=== PATIENT | female | born 1930 | race African-American/Black ===

== ENCOUNTER 2016-07-25 05:46 | Inpatient (IN) ==
[2016-07-25] MEDS ORDERED: NS 500 ML IV PRN (05:54)
--- NOTE | 2016-07-25 06:05 | PROVIDER DOCUMENTATION ---
HPI-General Adult - General Chief Complaint: Stroke-Like Symptoms Stated Complaint: STROKE LIKE SYMPTOMS Time Seen by Provider: 07/25/16 05:47 Source: EMS, longterm records Allergies/Adverse Reactions: Patient Allergies Allergy/AdvReac Type Severity Reaction Status Date / Time No Known Allergies Allergy Verified 07/25/16 06:10 Home Medications: Home Medication List Medication Instructions Recorded Confirmed Last Taken Type Levothyroxine [Synthroid] 75 microgm PO DAILY 11/19/12 07/25/16 02/03/16 14:30 History 50 mcg Pantoprazole [Protonix] 40 mg PO DAILY@0700 11/19/12 07/25/16 02/03/16 07:00 History 40mg Memantine HCl/Donepezil HCl 1 cap PO DAILY 02/03/16 02/03/16 02/02/16 15:00 History [Namzaric 28 mg-10 mg Capsule] 1 cap Sucralfate [Carafate] 1 gm PO BID 02/03/16 02/03/16 02/03/16 09:00 History 1gm Megestrol Acetate [Megace] 40 mg PO BID #0 tablet 02/08/16 Unknown Rx Megestrol Acetate [Megace] 40 mg PO BID #0 tablet 02/08/16 07/25/16 Unknown Rx Benzonatate 200 mg PO DIRECTED 07/25/16 07/25/16 Unknown History Donepezil [Aricept] 10 mg PO DAILY 07/25/16 07/25/16 Unknown History Furosemide [Lasix] 30 mg PO DAILY 07/25/16 07/25/16 Unknown History Loratadine 10 mg PO DAILY 07/25/16 07/25/16 Unknown History Memantine HCl [Namenda] 10 mg PO BID 07/25/16 07/25/16 Unknown History Multivits,Ca,Minerals/Iron/FA 1 each PO DAILY 07/25/16 07/25/16 Unknown History [Thera-M Tablet] Potassium Citrate E.r. [Urocit-K] 10 meq PO DAILY 07/25/16 07/25/16 Unknown History - History of Present Illness -Gen Adult Nature of Presenting Problems: this patient is brought to us from [facility] via ambulance for stroke like symptoms. She apparently was reported as normal on the 3 am rounds at the [place] but then was checked again at about 5 am and was noted to not be able to verbally respond although she seemed awake. EMS was called and she was brought to the ED. It was difficult to assess her extremity strength at the [place] but she was thought to have a right sided drift of the right upper extremity. On exam by me almost immediately upon arrival, she was able to answer verbally to me when I called her name. Location of Pain/Injury: reports: none Onset/Duration: reports: 1-3 hours ago Timing: reports: improving Context/Activities at Onset: reports: sleep Modifying Factors: improves with: nothing Associated Symptoms: reports: other (this patient although she would respond to her named being called, she could not verbalize what her symptoms were.) Similar Symptoms Previously?: Yes Recently seen or treated by another doctor?: Yes Review of Systems - Adult - REVIEW OF SYSTEMS - ADULT ROS:: unobtainable per condition Constitutional: reports: no symptoms reported Eyes: reports: no symptoms reported Ears, Nose, Mouth & Throat: reports: no symptoms reported Cardiovascular: reports: no symptoms reported Respiratory: reports: no symptoms reported Gastrointestinal: reports: no symptoms reported Genitourinary: reports: no symptoms reported Musculoskeletal: reports: no symptoms reported Integumentary: reports: no symptoms reported Neurological: reports: no symptoms reported Psychiatric: reports: no symptoms reported Endocrine: reports: no symptoms reported Hematologic/Lymphatic: reports: no symptoms reported Allergic/Immunologic: reports: no symptoms reported All Other Systems: Reviewed and Negative Past History - Adult - PAST MEDICAL HISTORY-ADULT Review of Records: reports: Nursing Assessment Review - SOCIAL HISTORY Smoking: denies Physical Exam-General - PHYSICAL EXAM-ADULT Initial Vital Signs Reviewed: Yes - CONSTITUTIONAL General Appearance: no apparent distress, slow to respond - EYES Eyes: PERRL/EOMI - HEAD, EARS, NOSE, MOUTH & THROAT HENMT: normocephalic/atraumatic - NECK Neck: supple - RESPIRATORY Respiratory: lungs clear - CARDIOVASCULAR Cardiovascular: regular rate, rhythm - GASTROINTESTINAL (ABDOMEN) Abdominal Exam: non tender, soft - MUSCULOSKELETAL Extremity: pedal edema (2+) - SKIN Integumentary: normal color, warm/dry - NEUROLOGIC Neurologic: other (I could not get any difference in the exam of her extremities. There seemed to be equal strength in weakness in all extremities.) . negative: facial droop, focal weakness, motor weakness - PSYCHIATRIC Psych/Mental Status: negative: oriented x 3 (oriented to person) Progress - PLAN OF CARE/RESULTS Progress/Plan/Lab Results: Vital Signs - 8 hr 07/25/16 05:54 Temperature 98.2 F Pulse Rate 115 H Respiratory Rate 24 Blood Pressure 110/77 O2 Sat by Pulse Oximetry 98 Orders Category Date Time Status Cardiac Monitoring DIRECTED Care 07/25/16 05:54 Ordered Finger Stick Blood Sugar (ED) DIRECTED Care 07/25/16 05:54 Ordered Misc. NRSG Communication Order DIRECTED Care 07/25/16 05:54 Ordered Saline Loc NOW Care 07/25/16 05:54 Ordered CHEST-PORTABLE [RAD] Stat Exams 07/25/16 05:54 Ordered HEAD W/O CONTRAST [CT] Stat Exams 07/25/16 05:44 Ordered HEAD W/O CONTRAST [CT] Stat Exams 07/25/16 05:54 Ordered CBC WITH ELECTRONIC DIFF [HEME] Stat Lab 07/25/16 05:54 Ordered COMPREHENSIVE METABOLIC PANEL [CHEM] Stat Lab 07/25/16 05:[address] Or[address]IME WITH INR PL [COAG] Stat Lab 07/25/16 05:[address] [COAG] Stat Lab 07/25/16 05:54 Ordered TROPONIN T Stat Lab 07/25/16 05:54 Ordered URINALYSIS W/POSS RFLX CULT-1 [URINALYSIS] Stat Lab 07/25/16 05:54 Uncollected URINE DRUG SCREEN PL Stat Lab 07/25/16 05:54 Uncollected 0.9% Sodium Chloride Inj [Ns] 500 ml Med 07/25/16 05:54 Ordered IV 999 mls/hr EKG [EKG] Stat Ther 07/25/16 05:54 Ordered Result Diagrams: 07/25/16 06:45 07/25/16 06:45 - EKG 1 Time of EKG reading by physician:: 06:15 EKG Read and Signed by:: Meng Quintanilla EKG Interpretation (*Must complete 3 of following elements*): Abnormal Rate: 117 Rhythm: sinus [place]: left QRS: LBB - CONSULTS/PCP/HOSPITALIST Notification #1 *Consult/PCP/Hospitalist*: Sy Mathias Disposition: Admit Departure - Departure Time of Disposition Decision: 07:57 DIAGNOSIS: TIA (transient ischemic attack), Pneumonia Disposition: ADMITTED INPATIENT 09 Certified Medical Emergency: Emergent Condition: Fair Referrals and Follow-Ups: Sy Lemon MD [Primary Care Provider] - - Critical Care Note This patient required my direct & personal management of CC.: Yes
--- NOTE | 2016-07-25 06:34 | Diag Imaging Result Document ---
PROCEDURE NAME: HEAD W/O CONTRAST - 07/25/2016 CT BRAIN WITHOUT CONTRAST: TECHNIQUE: Dose-reduction protocol. COMPARISON: Compared to 05/30/2016. FINDINGS: No parenchymal hemorrhage. No epidural or subdural hematoma. No subarachnoid hemorrhage. There is diffuse atrophy. No mass identified on this noncontrasted exam. No hydrocephalus. Minimal microvascular ischemic changes. No sinus opacification. No air fluid levels. IMPRESSION: 1. No hemorrhage. 2. Atrophy with minimal microvascular ischemic changes similar to the prior exam. A preliminary report was given at 6:11 a.m.
[2016-07-25 06:54] LABS: MANUAL DIFF NEEDED? NO
[2016-07-25 06:56] LABS: UR AMPHETAMINES QUAL NONE DETECTED (NONE DETECT); UR BARBITUATES QUAL NONE DETECTED (NONE DETECT); UR BENZODIAZEPIN QUAL NONE DETECTED (NONE DETECT); UR CANNABINOIDS QUAL NONE DETECTED (NONE DETECT); UR COCAINE QUAL NONE DETECTED (NONE DETECT); UR MDMA QUAL NONE DETECTED (NONE DETECT); UR METHADONE QUAL NONE DETECTED (NONE DETECT); UR METHAMPHETAMINE QUAL NONE DETECTED (NONE DETECT); UR OPIATES QUAL NONE DETECTED (NONE DETECT); UR OXYCODONE QUAL NONE DETECTED (NONE DETECT); UR PCP QUAL NONE DETECTED (NONE DETECT); UR TCA QUAL NONE DETECTED (NONE DETECT)
[2016-07-25 06:57] LABS: BASO% 0.6 % (0.0-0.8); EOS# 0.32 X1000 (0.0-0.7); HEMATOCRIT 28.4 % (37.0-47.0); HEMOGLOBIN 8.6 g/dL (12.0-16.0); IMM GRAN# 0.13 X1000 (0.0-0.04); IMM GRAN% 1.6 % (0.0-0.5); LYMPH# 1.85 X1000 (1.2-3.4); LYMPH% 22.9 % (20.5-51.1); MCH 26.8 PG (27-31); MCHC 30.3 g/dL (33-37); MCV 88.5 FL (81-99); MONO# 0.65 X1000 (0.11-0.59); MPV 9.2 FL (7.4-10.4); NEUT% 62.9 % (42.2-75.2); PLT 270 X1000 (130-400); RBC 3.21 XMIL (4.2-5.4)
--- NOTE | 2016-07-25 07:08 | Diag Imaging Result Document ---
PROCEDURE NAME: CHEST-PORTABLE - 07/25/2016 PORTABLE CHEST: COMPARISON: Compared to 11/14/2013. FINDINGS: There are bilateral infiltrates. These are most pronounced in the mid left lung. The heart is mildly enlarged. No pleural effusions identified. IMPRESSION: Bilateral infiltrates. Followup film is recommended.
[2016-07-25 07:15] LABS: AGAP 15; ALBUMIN 3.3 g/dL (3.5-5.0); ALKALINE PHOSPHATASE 43 U/L (32-104); BUN 42 mg/dL (8-22); CALCIUM 8.1 mg/dL (8.8-10.2); CHLORIDE 108 mmol/L (98-107); COSMO 293; GOT 11 U/L (10-30); GPT 5 U/L (10-36); POTASSIUM 4.3 mmol/L (3.5-5.1); SODIUM 142 mmol/L (136-145); TCO2 19 mmol/L (25-35); TOTAL BILIRUBIN < 0.15 mg/dL (0.20-1.00); TOTAL PROTEIN 6.2 g/dL (6.3-8.3)
[2016-07-25 07:25] LABS: URINE SOURCE CATH; URINE WBC <10 /HPF (<10)
[2016-07-25 07:26] LABS: BILIRUBIN URINE NEGATIVE (NEGATIVE); BLOOD URINE 4+ (NEGATIVE); CLARITY CLEAR (CLEAR); COLOR YELLOW; GLUCOSE URINE NEGATIVE (NEGATIVE); LEUKOCYTES URINE TRACE (NEGATIVE); NITRITE URINE NEGATIVE (NEGATIVE); PROTEIN URINE TRACE mg/dL (NEGATIVE); SP GRAVITY URINE 1.015; URINE CAST NONE SEEN /LPF; URINE CRYSTAL NONE SEEN /HPF; URINE CULTURE PL NEEDED? YES; URINE EPITHELIAL CELLS <10 /HPF (<10); URINE RBC 20-40 /HPF (<10); UROBILINOGEN URINE NORMAL
[2016-07-25 07:38] LABS: INR 1.25 (0.86-1.15)
[2016-07-25 07:39] LABS: PTT PL 33.9 Seconds (22.6-43.9)
[2016-07-25] MEDS ORDERED: ROCEPHIN 1 GM/NS 1 GM/50 ML IVPB IV ONE (08:03)
[2016-07-25] MEDS ORDERED: NS 1,000 ML IV ONE (08:04)
[2016-07-25] MEDS ORDERED: TYLENOL PO PRN (08:04)
[2016-07-25] MEDS ORDERED: ZOFRAN IV PRN (08:04)
--- NOTE | 2016-07-25 11:35 | EKG Report ---
Test Performed on : 07/25/2016 06:05:10 AM Test Reason : stroke symptoms Blood Pressure : / mmHG Vent. Rate : 117 BPM Atrial Rate : 117 BPM P-R Int : 000 ms QRS Dur : 146 ms QT Int : 346 ms P-R-T Axes : 000 -49 139 degrees QTc Int : 482 ms Wide QRS rhythm. with occasional premature ventricular complexes. Left axis deviation Left bundle branch block Abnormal ECG When compared with ECG of 05-FEB-2016 16:03, Wide QRS rhythm. has replaced Sinus rhythm. Vent. rate has increased BY 42 BPM Unconfirmed Result
[2016-07-25] MEDS ORDERED: TESSALON PO PRN (11:45)
[2016-07-25] MEDS: NITROGLYCERIN TOP SCH ×2 (12:15→17:37)
--- NOTE | 2016-07-25 16:10 | HISTORY AND PHYSICAL ---
CHIEF COMPLAINT: Family noted unresponsiveness and brought her to the emergency room by ambulance. PRESENT ILLNESS: This is the first recent [place] admission for this 86-year- old black female who presented to the emergency room with lethargy and slurred speech. There was no focal weakness. CT of her head revealed no acute change, but microvascular changes similar to previous exams. Chest x-ray revealed bilateral patchy infiltrates. There was no pleural effusion according to the radiologist. BNP was elevated at greater than 35,000. There is history of congestive heart failure. The patient's blood pressure recently has been low and carvedilol was discontinued a few months ago. Her last hospitalization was 02/03/2016 for a couple of weeks. She had anorexia and rectal bleeding. Attempts were made at EGD, but she had some complications with anesthesia and this could not be done. She has been maintained as an outpatient. Discussion has been made with family concerning hospice, but the family has not wanted this at the present. She has been cared for by family members and home health. Hematocrit in the emergency room was 28.4 and white blood count 8000. BUN and creatinine were a little elevated compared to previous studies at 42 and 2.2. Troponin T was 0.197. She is admitted for treatment of possible TIA and pneumonia. PAST MEDICAL HISTORY: Last hospitalization as above in January 2016. She has had no recent surgery. There have been previous hospitalizations with congestive heart failure. PRESENT MEDICATIONS: Aricept 10 mg daily, Lasix 20 mg 1 daily p.r.n. swelling, levothyroxine 50 mcg, one daily, loratadine 10 mg daily p.r.n. congestion, Megace 40 mg b.i.d., and Namenda 10 mg b.i.d. She also takes Protonix 40 mg daily, potassium chloride 10 mEq daily, and Tessalon Perles 200 mg t.i.d. p.r.n. cough. ALLERGIES: None known. REVIEW OF SYSTEMS: Poor appetite, dementia, and several pound recent weight loss. She has a couple of small decubitus ulcers on the buttocks. FAMILY HISTORY: Unremarkable. SOCIAL HISTORY: She has been in [facility] care at [facility]. There is no recent history of smoking or alcohol usage. PHYSICAL EXAMINATION: VITAL SIGNS: Temperature 99.1 degrees, heart rate 108, respiration 18, blood pressure 104/65, O2 saturation on 2 liters nasal oxygen 99%. Weight measured by built in bed scale 124, height 5 feet 4 inches. GENERAL: Patient is a cachectic, weak and responsive, but with very soft speech. She responds to simple questions. HEENT: Pupils equal, round, and reactive to light. Tympanic membranes without inflammation. Pharynx benign. NECK: Supple with no mass or lymphadenopathy. There is no carotid bruit. HEART: Regular in rate and rhythm with no murmur or gallop. LUNGS: Clear with no rales or rhonchi. ABDOMEN: Soft and scaphoid with no mass or organomegaly. EXTREMITIES: No cyanosis, clubbing, or edema. There are 2 small decubitus ulcers on her buttocks. RECTAL AND GENITALIA: Deferred. IMPRESSION: Transient ischemic attack, bilateral pneumonia, chronic systolic congestive heart failure, anemia, history of rectal bleeding, hypothyroidism. PLAN: Admit for treatment of pneumonia and for further evaluation of transient ischemic attack. Computed tomography scan of her head showed no acute stroke. Magnetic resonance imaging will be done if there is further slurred speech, or focal weakness. cc: Sy Lemon MD MTDD
[2016-07-25] MEDS: 1/2 NS IV SCH (18:05)
[2016-07-25] MEDS: POTASSIUM CHLORIDE IV SCH (18:05)
[2016-07-25] MEDS: D5 IV SCH (18:05)
[2016-07-26] MEDS: MEGACE PO SCH ×3 (00:06→20:39)
[2016-07-26] MEDS: NAMENDA PO SCH ×3 (00:08→20:39)
[2016-07-26] MEDS: NITROGLYCERIN TOP SCH ×5 (00:08→23:19)
[2016-07-26] MEDS: 1/2 NS IV SCH ×3 (01:21→18:17)
[2016-07-26] MEDS: POTASSIUM CHLORIDE IV SCH ×3 (01:21→18:17)
[2016-07-26] MEDS: D5 IV SCH ×3 (01:21→18:17)
--- NOTE | 2016-07-26 08:16 | PROGRESS NOTE ---
DATE: 07/26/2016 VITAL SIGNS: Temperature 98.5 degrees, heart rate 98, respirations 18, blood pressure 94/59. O2 saturation on room air 99%. SUBJECTIVE: She is responsive and states she has not had trouble swallowing. Neurological reveals no focal weakness. Chest is clear to auscultation. PLAN: Carotid ultrasound this morning, physical therapy is asked to assist with range of motion. Diet is increased to soft GI. RYANN hose are added. Lovenox will not be used since she has had a history of GI bleeding. cc: Sy Lemon MD
[2016-07-26] MEDS: ROCEPHIN 1 GM/NS 1 GM/50 ML IVPB IV SCH (08:18)
[2016-07-26] MEDS: THERA M PLUS PO SCH (08:19)
[2016-07-26] MEDS: ARICEPT PO SCH (08:19)
[2016-07-26] MEDS ORDERED: THERA M PLUS PO SCH (09:00)
[2016-07-26] MEDS ORDERED: SYNTHROID PO SCH ×2 (09:00)
[2016-07-27] MEDS: 1/2 NS IV SCH (02:38)
[2016-07-27] MEDS: D5 IV SCH (02:38)
[2016-07-27] MEDS: POTASSIUM CHLORIDE IV SCH (02:38)
[2016-07-27] MEDS: NITROGLYCERIN TOP SCH ×4 (05:02→23:25)
[2016-07-27 06:42] LABS: MANUAL DIFF NEEDED? NO
[2016-07-27 06:52] LABS: BASO% 0.5 % (0.0-0.8); EOS# 0.29 X1000 (0.0-0.7); HEMATOCRIT 28.2 % (37.0-47.0); HEMOGLOBIN 8.4 g/dL (12.0-16.0); IMM GRAN# 0.11 X1000 (0.0-0.04); IMM GRAN% 1.2 % (0.0-0.5); LYMPH# 1.63 X1000 (1.2-3.4); LYMPH% 17.1 % (20.5-51.1); MCH 26.6 PG (27-31); MCHC 29.8 g/dL (33-37); MCV 89.2 FL (81-99); MONO# 0.88 X1000 (0.11-0.59); MONO% 9.2 % (1.7-9.3); MPV 9.8 FL (7.4-10.4); PLT 254 X1000 (130-400); RBC 3.16 XMIL (4.2-5.4)
--- NOTE | 2016-07-27 07:08 | Extremity Venous Study ---
PROCEDURE NAME: Carotid Ultrasound - 07/26/2016 CAROTID ULTRASOUND: INDICATION: TIA. FINDINGS: There are no velocity elevations to suggest hemodynamically significant stenosis. No significant plaque is appreciated. ICA/CCA ratios are within normal limits. Vertebral flow is antegrade bilaterally. Velocities are somewhat dampened with the maximal internal carotid artery velocity of 56/25 distal right ICA and 66/29 distal left ICA. It would be difficult to exclude flow limitation proximal to the carotids. Correlate clinically. IMPRESSION: No evidence for hemodynamically significant stenosis. Estimated stenosis is less than 50% bilaterally. Dampened waveforms could indicate flow limitation proximal to the carotid arteries. Correlate clinically.
[2016-07-27 07:23] LABS: CALCIUM 7.9 mg/dL (8.8-10.2); POTASSIUM 4.6 mmol/L (3.5-5.1)
[2016-07-27] MEDS ORDERED: DUONEB (A & A) INH ONE (08:03)
[2016-07-27] MEDS ORDERED: LASIX IV ONE (08:31)
--- NOTE | 2016-07-27 08:44 | Diag Imaging Result Document ---
PROCEDURE NAME: CHEST-PORTABLE - 07/27/2016 PORTABLE AP CHEST: COMPARISON: Compared to 07/25/2016. FINDINGS: There are dense bilateral infiltrates. These are more pronounced than on the prior exam. There is at least a small left effusion with basilar atelectasis. The heart is enlarged. The patient has scoliosis. IMPRESSION: Interval worsening in the bilateral infiltrates.
[2016-07-27] MEDS: ROCEPHIN 1 GM/NS 1 GM/50 ML IVPB IV SCH (09:13)
[2016-07-27] MEDS: ARICEPT PO SCH (09:15)
[2016-07-27] MEDS: D5 1/2 NS 1,000 ML IV SCH ×2 (09:15→23:52)
[2016-07-27] MEDS: NAMENDA PO SCH ×3 (09:15→21:46)
[2016-07-27] MEDS: THERA M PLUS PO SCH (09:15)
[2016-07-27] MEDS: SYNTHROID PO SCH (09:15)
[2016-07-27] MEDS: MEGACE PO SCH ×3 (09:16→21:46)
--- NOTE | 2016-07-27 09:16 | PROGRESS NOTE ---
DATE: 07/27/2016 VITAL SIGNS: Temperature 98.4 degrees, heart rate 109, respirations 22, blood pressure 113/73, O2 saturation on 1 L nasal oxygen 97%. LABORATORY: Sodium 140, potassium 4.6, BUN 31, creatinine 1.7, glucose 142, and calcium 7.9. Hemoglobin 8.4, hematocrit 28.2, white blood count 9500 with 69% neutrophils. ASSESSMENT: Patient developed labored respirations this morning and O2 saturation dropped to 88%. There were was wheezing and scattered rhonchi. Chest x-ray revealed increased hilar infiltrate bilaterally. She was given nebulizer treatment as well as increase in oxygen to 3 L nasal. She also was given Lasix 40 mg intravenous 1 dose. PLAN: Continue nebulizer treatments four times a day. cc: Sy Lemon MD
[2016-07-27] MEDS: ALBUTEROL NEB INH SCH ×3 (10:38→20:27)
[2016-07-28] MEDS ORDERED: LASIX IV ONE ×2 (01:00→08:25)
[2016-07-28] MEDS: ALBUTEROL NEB INH SCH ×4 (04:25→20:45)
[2016-07-28] MEDS: NITROGLYCERIN TOP SCH ×4 (05:27→23:03)
[2016-07-28] MEDS: SYNTHROID PO SCH (06:07)
[2016-07-28] MEDS ORDERED: SALINE LOCK IV FLUID XX ONE (08:24)
--- NOTE | 2016-07-28 08:44 | PROGRESS NOTE ---
DATE: 07/28/2016 VITAL SIGNS: Temperature 98.1 degrees, heart rate 79, respirations 16, blood pressure 118/66, O2 saturation on 3 L nasal oxygen 95%. SUBJECTIVE: The patient had an episode of shortness of breath last night and was given Lasix IV. She continues to receive albuterol treatments q.i.d. Lungs are better this morning, but there are a few scattered rhonchi. Abdomen is soft. Appetite decreased. PLAN: Change IV fluids to saline lock, give 1 dose of Lasix 20 mg IV this morning. Chest x-ray and lab will be done tomorrow morning. cc: Sy Lemon MD
[2016-07-28] MEDS: NAMENDA PO SCH ×2 (09:19→20:18)
[2016-07-28] MEDS: ARICEPT PO SCH (09:19)
[2016-07-28] MEDS: THERA M PLUS PO SCH (09:19)
[2016-07-28] MEDS: MEGACE PO SCH ×2 (09:19→20:18)
[2016-07-28] MEDS: ROCEPHIN 1 GM/NS 1 GM/50 ML IVPB IV SCH (09:20)
[2016-07-29] MEDS: ALBUTEROL NEB INH SCH ×4 (03:55→20:10)
[2016-07-29] MEDS: NITROGLYCERIN TOP SCH ×4 (05:01→23:01)
[2016-07-29 05:04] LABS: MANUAL DIFF NEEDED? NO
[2016-07-29 05:11] LABS: BASO% 0.7 % (0.0-0.8); EOS# 0.28 X1000 (0.0-0.7); EOS% 3.1 % (0.0-10.0); HEMATOCRIT 25.1 % (37.0-47.0); HEMOGLOBIN 7.6 g/dL (12.0-16.0); IMM GRAN# 0.09 X1000 (0.0-0.04); LYMPH# 1.22 X1000 (1.2-3.4); LYMPH% 13.5 % (20.5-51.1); MCH 26.8 PG (27-31); MCHC 30.3 g/dL (33-37); MCV 88.4 FL (81-99); MONO# 1.03 X1000 (0.11-0.59); MONO% 11.4 % (1.7-9.3); NEUT% 70.3 % (42.2-75.2); PLT 199 X1000 (130-400); RBC 2.84 XMIL (4.2-5.4)
[2016-07-29 05:36] LABS: POTASSIUM 4.6 mmol/L (3.5-5.1)
[2016-07-29] MEDS: SYNTHROID PO SCH (06:18)
[2016-07-29] MEDS: ROCEPHIN 1 GM/NS 1 GM/50 ML IVPB IV SCH (08:19)
[2016-07-29] MEDS: NAMENDA PO SCH ×2 (08:20→20:26)
[2016-07-29] MEDS: MEGACE PO SCH ×2 (08:21→20:26)
[2016-07-29] MEDS: THERA M PLUS PO SCH (08:21)
[2016-07-29] MEDS: ARICEPT PO SCH (08:22)
--- NOTE | 2016-07-29 08:29 | Diag Imaging Result Document ---
PROCEDURE NAME: CHEST-PORTABLE - 07/29/2016 CHEST, SINGLE VIEW: INDICATION: Pneumonia. COMPARISON: 07/27/2016. FINDINGS: Cardiomegaly with bilateral air space disease involving the majority of both lungs is unchanged. IMPRESSION: Stable bilateral infiltrates.
--- NOTE | 2016-07-29 10:13 | PROGRESS NOTE ---
DATE: 07/29/2016 VITAL SIGNS: Temperature 98.4 degrees, heart rate 107, respiration 20, blood pressure elevated, but this is probably an incorrect measurement. Blood pressure earlier was 100/67 this morning, and recorded level was 146/120. O2 saturation is 100% on 3 L via mask. She continues to receive albuterol treatments q.i.d. Chest x-ray showed infiltrates to be unchanged. LABORATORY: Hemoglobin 7.6, hematocrit 25.1, white blood count 9000, with 70% neutrophils. Sodium 138, potassium 4.6, BUN 36, creatinine 1.9, calcium 8.0. PLAN: Transfuse 1 unit of packed red blood cells. Blood and urine cultures have revealed no growth. Plan to continue Rocephin. cc: Sy Lemon MD
[2016-07-29] MEDS ORDERED: LASIX IV ONE (16:40)
[2016-07-29] MEDS ORDERED: LASIX ONE (20:22)
[2016-07-30] MEDS: ALBUTEROL NEB INH SCH ×4 (02:39→21:09)
[2016-07-30 07:55] LABS: MANUAL DIFF NEEDED? NO
[2016-07-30] MEDS: MEGACE PO SCH ×2 (08:19→20:44)
[2016-07-30] MEDS: THERA M PLUS PO SCH (08:19)
[2016-07-30] MEDS: ARICEPT PO SCH (08:19)
[2016-07-30] MEDS: NAMENDA PO SCH ×2 (08:19→20:44)
[2016-07-30] MEDS: ROCEPHIN 1 GM/NS 1 GM/50 ML IVPB IV SCH (08:22)
[2016-07-30 08:43] LABS: BASO% 0.3 % (0.0-0.8); EOS# 0.04 X1000 (0.0-0.7); EOS% 0.4 % (0.0-10.0); HEMATOCRIT 29.7 % (37.0-47.0); HEMOGLOBIN 9.5 g/dL (12.0-16.0); IMM GRAN# 0.11 X1000 (0.0-0.04); IMM GRAN% 1.1 % (0.0-0.5); LYMPH# 1.18 X1000 (1.2-3.4); LYMPH% 12.1 % (20.5-51.1); MCV 87.6 FL (81-99); MONO# 1.07 X1000 (0.11-0.59); MPV 10.7 FL (7.4-10.4); NEUT% 75.1 % (42.2-75.2); PLT 211 X1000 (130-400); RBC 3.39 XMIL (4.2-5.4)
[2016-07-30] MEDS: NITROGLYCERIN TOP SCH ×3 (12:41→18:44)
[2016-07-30] MEDS: SYNTHROID PO SCH (12:42)
[2016-07-30] MEDS ORDERED: LEVAQUIN 750 MG/D5W 750 MG/150 ML IVPB IV SCH ×2 (14:00→14:45)
[2016-07-30] MEDS: ZOSYN 3.375 GM/NS 3.375 GM/50 ML IVPB IV SCH ×2 (14:31→20:45)
[2016-07-30] MEDS: ZITHROMAX 500 MG/NS 500 MG/250 ML IVPB IV SCH (18:43)
[2016-07-30] MEDS ORDERED: LASIX IV ONE (21:44)
[2016-07-30] MEDS ORDERED: VANCOMYCIN IV PER PHARMACY MISC SCH (21:45)
[2016-07-30] MEDS ORDERED: VANCOMYCIN 1 GM/NS 1 GM/250 ML IVPB IV ONE (22:00)
[2016-07-31] MEDS: NITROGLYCERIN TOP SCH ×4 (00:50→18:18)
[2016-07-31] MEDS: ZOSYN 3.375 GM/NS 3.375 GM/50 ML IVPB IV SCH ×3 (01:42→13:18)
[2016-07-31] MEDS: ALBUTEROL NEB INH SCH ×3 (03:59→16:42)
[2016-07-31] MEDS: SYNTHROID PO SCH (06:07)
[2016-07-31 06:20] LABS: MANUAL DIFF NEEDED? NO
[2016-07-31 06:27] LABS: BASO% 0.2 % (0.0-0.8); EOS# 0.01 X1000 (0.0-0.7); EOS% 0.1 % (0.0-10.0); HEMATOCRIT 30.7 % (37.0-47.0); HEMOGLOBIN 9.4 g/dL (12.0-16.0); IMM GRAN# 0.13 X1000 (0.0-0.04); IMM GRAN% 1.3 % (0.0-0.5); LYMPH# 1.37 X1000 (1.2-3.4); LYMPH% 13.3 % (20.5-51.1); MCH 27.1 PG (27-31); MCHC 30.6 g/dL (33-37); MCV 88.5 FL (81-99); MONO# 0.98 X1000 (0.11-0.59); MONO% 9.5 % (1.7-9.3); MPV 10.8 FL (7.4-10.4); NEUT% 75.6 % (42.2-75.2); PLT 220 X1000 (130-400); RBC 3.47 XMIL (4.2-5.4)
[2016-07-31 07:04] LABS: CALCIUM 8.1 mg/dL (8.8-10.2); POTASSIUM 4.8 mmol/L (3.5-5.1)
[2016-07-31] MEDS: THERA M PLUS PO SCH (09:00)
[2016-07-31] MEDS: ARICEPT PO SCH (09:00)
[2016-07-31] MEDS: NAMENDA PO SCH (09:00)
[2016-07-31] MEDS: MEGACE PO SCH (09:00)
[2016-07-31 15:50] VITALS: BP 107/69
[2016-07-31] MEDS: ZITHROMAX 500 MG/NS 500 MG/250 ML IVPB IV SCH (18:19)
[2016-08-02] MEDS ORDERED: VANCOMYCIN 1 GM in NS 250 ML IV SCH (11:00)
--- NOTE | 2016-08-02 17:05 | DISCHARGE SUMMARY ---
ADMISSION DATE: 07/25/2016 DISCHARGE DATE: 07/31/2016 DISCHARGE DIAGNOSES: 1. Bilateral pneumonia. 2. Acute on chronic systolic congestive heart failure. 3. Prerenal azotemia. 4. Anemia with hematuria. 5. Hypothyroidism. HOSPITAL COURSE: Ms. Blancas was an 86-year-old female, who was brought into the emergency room by ambulance after she was found to be unresponsive. She was diagnosed as having pneumonia and therefore was admitted for further care. CT scan of the brain did not show any acute stroke. She was treated initially with ceftriaxone intravenously to which she did not respond and therefore, she was switched to Zosyn along with vancomycin and Levaquin. Because of IV infiltration she had some irritation at the IV site because of which it was thought that she was allergic to Levaquin and therefore Levaquin was discontinued and azithromycin was given instead to her. The patient's condition gradually deteriorated and did not respond to these antibiotics either. She did have anemia for which she had a blood transfusion and also had hematochezia for which a renal ultrasound was ordered but was never performed since she prior to that. Despite all the treatments and measures the patient's condition continued to decline and she at 1955 on 07/31/2016. CAUSE OF : Was most likely bilateral pneumonia with contributing factors of advanced age and chronic systolic congestive heart failure along with acute renal failure secondary to prerenal azotemia. cc: MD Sy Patel MD
--- NOTE | 2016-08-10 04:09 | DISCHARGE SUMMARY ---
ADMISSION DATE: 07/25/2016 DISCHARGE DATE: 07/31/2016 DISCHARGE SUMMARY ADDENDUM: This 86-year-old black female with pneumonia during the admission 07/25/2016 through 07/31/2016. Based on treatment with intravenous Zosyn and Levaquin it was felt the patient most likely had gram-negative pneumonia. Blood culture, however, provided no growth. cc: Sy Lemon MD
== END 2016-07-31 19:55 | disposition expired ==
LOC: P.ED 05:46 → P.MEDSURG 08:45
PROVIDERS: ADMIT Family Medicine; ATTEND Family Medicine